=== PATIENT | male | born 1965 | race Caucasian/White ===

== ENCOUNTER 2022-10-13 09:09 | Outpatient (CLI) | payer BC | END 2022-10-13 09:10 | disposition home or self-care (01) | LOC: LABBT 09:09 | PROVIDERS: ATTEND Orthopaedic Surgery | DX: Z01.818 Encounter for other preprocedural examination (principal); M17.12 Unilateral primary osteoarthritis, left knee | CPT/HCPCS: 71046; 93005; 93010 ==